=== PATIENT | female | born 1980 | race Caucasian/White ===

== ENCOUNTER 2017-05-07 19:58 | Emergency (ER) | payer OTHER ==
[~2017-05-07] VITALS: Ht 170.2 cm; Wt 69.5 kg
[~2017-05-07 19:58] MED LIST: ALBUAER2 INH; AMT24 PO; CETI10TA10 PO; ERGO500037 PO; IBUP-103 PO; MAGN250T9 PO; MTR600X PO; POLY335040 PO
[2017-05-07 20:18] VITALS: TEMP 36.8; Ht 170.2 cm; Wt 69.5 kg
[2017-05-07] MEDS ORDERED: OMEP40CA41 PO (20:34)
[2017-05-07] MEDS ORDERED: RANI150T2 PO (20:34)
[2017-05-07] MEDS ORDERED: CHOL1000 PO (20:35)
[2017-05-07] MEDS ORDERED: CYAN100T6 PO (20:35)
[2017-05-07] MEDS ORDERED: SODIUM CHLORIDE 0.9% 1000ML 1,000 ML IV STA (20:43)
[2017-05-07] MEDS ORDERED: ONDANSETRON 8 MG/54 ML D5W IV STA (20:53)
[2017-05-07] MEDS ORDERED: OPTIRAY 320 IV PRN (21:00)
[2017-05-07 21:13] LABS: URINE APPEARANCE TURBID (CLEAR); URINE BILIRUBIN NEG (NEG); URINE COLOR YELLOW; URINE EPITHELIAL CELL AUTO >30 /lpf (0-5); URINE NITRITE NEG (NEG); URINE SPECIFIC GRAVITY 1.015 (1.000-1.030); UROBILINOGEN NEG (NEG); ZZUR CULT IF INDIC CLEAN CATCH YES
[2017-05-07 21:29] LABS: MANUAL MICROSCOPIC REQUIRED? NO; REVIEW REQ? YES
[2017-05-07 21:31] LABS: BASO % 0.6 %; BASO ABS # 0.04 K/uL (0-0.2); COMPLETE YES; EOS % 1.5 %; HEMATOCRIT 37.1 % (37-47); IG% 0.1 %; LYMPH % 27.2 %; LYMPH ABS # 1.84 K/uL (1.2-3.4); MEAN CELL VOLUME 99.2 fL (80-100); MEAN CORPUSCULAR HEMOGLOBIN 34.2 pg (25-34); MEAN CORPUSCULAR HGB CONC 34.5 g/dl (32-36); MONO % 6.4 %; NEUT % 64.2 %; PLATELET COUNT 231 K/uL (130-400); RED BLOOD COUNT 3.74 M/uL (4.2-5.4); WHITE BLOOD COUNT 6.76 K/uL (4.8-10.8)
[2017-05-07 21:33] LABS: PREG INTERNAL NEGATIVE QC NEG CLEAR BACKGROUND; PREG INTERNAL POSITIVE QC POS CONTROL LINE
[2017-05-07 21:35] LABS: BLOOD UREA NITROGEN 13 mg/dl (7-18); BUN/CREATININE RATIO 18.9 (10-20); CALCIUM 8.9 mg/dl (8.5-10.1); CARBON DIOXIDE 27 mmol/L (21-32); CHLORIDE 106 mmol/L (98-107); CREATININE 0.66 mg/dl (0.60-1.20); GLUCOSE 76 mg/dl (70-99); POTASSIUM 3.8 mmol/L (3.5-5.1); SODIUM 140 mmol/L (136-145)
[2017-05-07 21:39] LABS: ALKALINE PHOSPHATASE 68 U/L (45-117); ALT/SGPT 35 U/L (12-78); AST/SGOT 29 U/L (15-37)
--- NOTE | 2017-05-07 21:44 | DIAGNOSTIC IMAGING REPORT ---
GALLBLADDER-ABD LIMITED CLINICAL HISTORY: upper abd pain, vomiting pain. Nausea. TECHNIQUE: Ultrasound COMPARISON STUDY: None FINDINGS: Contracted gallbladder. No shadowing gallstones. Common bile duct 5 mm. Liver is uniform. Pancreas and right kidney are unremarkable. IMPRESSION: Contracted gallbladder. Otherwise negative study. The above report was generated using voice recognition software. It may contain grammatical, syntax or spelling errors. Electronically signed by: Douglas Hernández M.D. 05/07/2017 9:43 PM Dictated Date/Time: 05/07/2017 9:42 PM
[2017-05-08] MEDS ORDERED: ONDA4TAB10 SL (00:35)
[2017-05-08] MEDS ORDERED: ONDANSETRON HOME PACK 4MG OD TAB PO ONE (00:45)
[2017-05-08 00:52] VITALS: BP 99/54; PULSE 70; O2SAT 99
--- NOTE | 2017-05-08 02:36 | EMERGENCY ROOM VISIT NOTE ---
History Report prepared by Everardo: Monique Alvarez Under the Supervision of: Dr. Andrew Cerda M.D. First contact with patient: 20:43 Chief Complaint: ABDOMINAL PAIN Stated Complaint: ABD PAIN,CHEST PAIN,NAUSEA Nursing Triage Summary: pt c/o abd pain/bloating x2 weeks. reports she saw GI and had hernia checked and was placed on antiacid medications. pt states she continues to have problems including bloating, pain in epigastric area, nausea, difficulty eating, and fatigue. reports hx of IBS and asthma. states "GI wanted to check my gall bladder and pancreas, but I called twice and no one returned my call." pt reports increased pain with eating. pt alert and oriented x4. breathing WNL. History of Present Illness The patient is a 36 year old female who presents to the Emergency Room with complaints of worsening abdominal pain starting two weeks ago. The patient states that she talked to her marine safety officer about the pain and he did and endo to determine it wasn't her hernia. She states that it isn't from her hernia. She reports that he put her on acid reflux medication that has provided no relief. She states that she has called them the past 3 days with no call back. She currently rates her pain as a 5/10 in severity, but notes when she tries to eat it is an 8/10 in severity. She describes the pain as a bloating feeling. The patient complains of loss of appetite, nausea, vomiting, fatigue, and chest pain that radiates to her back. Source of History: patient Onset: two weeks ago Position: abdomen Symptom Intensity: 5/10 Quality: other (bloating) Timing: worsening Associated Symptoms: + chest pain, + nausea, + vomiting, + back pain, + fatigue Note: The patient complains of loss of appetite. Review of Systems See HPI for pertinent positives and negatives. A total of ten systems were reviewed and were otherwise negative. Past Medical & Surgical Medical Problems: (1) Asthma (2) History of abdominal hernia (3) IBS (irritable bowel syndrome) (4) Pelvic pain Surgical Problems: (1) History of partial hysterectomy Family History Cancer Diabetes mellitus Heart disease Hypertension Lung disease Social History Smoking Status: Never Smoker Alcohol Use: none Marital Status: Housing Status: lives with significant other Occupation Status: unemployed Current/Historical Medications Scheduled Cetirizine Hcl (Zyrtec), 10 MG PO QAM Cholecalciferol (Vitamin D3), 5,000 INTER.UNIT PO DAILY Cyanocobalamin (Vitamin B12 100 Mcg), 200 MCG PO DAILY Lubiprostone (Amitiza), 24 MCG PO BID Magnesium (Magnesium), 750 MG PO QAM Omeprazole (Prilosec), 40 MG PO QAM Ondasetron Odt (Zofran Odt), 4 MG SL Q6H Polyethylene (Miralax Powder Packet), 2 SCOOPS PO DAILY Ranitidine HCl (Ranitidine HCl), 150 MG PO HS Scheduled PRN Albuterol (Ventolin), 2 PUFFS INH QID PRN for Shortness of Breath Ibuprofen (Ibuprofen), 600 MG PO Q6H PRN for Pain Ibuprofen Tab (Advil), 200-600 MG PO Q4H PRN for Pain Allergies Coded Allergies: Latex1 -Allergic Contact Dermititis (Verified Allergy, Severe, RASH, ) Moxifloxacin (Verified Allergy, Unknown, HIVES, 05/07/17) Physical Exam Vital Signs Date Time Temp Pulse Resp B/P (MAP) Pulse Ox O2 Delivery O2 Flow Rate FiO2 05/08/17 00:52 70 18 99/54 99 05/07/17 23:08 72 18 101/62 100 Room Air 05/07/17 22:29 73 05/07/17 21:10 73 18 111/67 100 Room Air 05/07/17 20:18 36.8 88 16 111/64 97 Room Air Physical Exam GENERAL: Awake, alert, uncomfortable-appearing, in no distress HENT: Normocephalic, atraumatic. Oropharynx unremarkable. EYES: Normal conjunctiva. Sclera non-icteric. NECK: Supple. No nuchal rigidity. FROM. No JVD. RESPIRATORY: Clear to auscultation. CARDIAC: Regular rate, normal rhythm. Extremities warm and well perfused. Pulses equal. ABDOMEN: Soft, non-distended. Mild epigastric tenderness to palpation. No rebound or guarding. No masses. RECTAL: Deferred. MUSCULOSKELETAL: Chest examination reveals no tenderness. The back is symmetrical on inspection without obvious abnormality. There is no CVA tenderness to palpation. No joint edema. LOWER EXTREMITIES: Calves are equal size bilaterally and non-tender. No edema. No discoloration. NEURO: Normal sensorium. No sensory or motor deficits noted. SKIN: No rash or jaundice noted. Medical Decision & Procedures ER Provider Diagnostic Interpretation: Radiology results as stated below per my review and radiologist interpretation: GALLBLADDER-ABD LIMITED CLINICAL HISTORY: upper abd pain, vomiting pain. Nausea. TECHNIQUE: Ultrasound COMPARISON STUDY: None FINDINGS: Contracted gallbladder. No shadowing gallstones. Common bile duct 5 mm. Liver is uniform. Pancreas and right kidney are unremarkable. IMPRESSION: Contracted gallbladder. Otherwise negative study. The above report was generated using voice recognition software. It may contain grammatical, syntax or spelling errors. Electronically signed by: Douglas Hernández M.D. 05/07/2017 9:43 PM Dictated Date/Time: 05/07/2017 9:[address] ABDOMEN & PELVIS: Contracted gallbladder. Tiny hypodensity in the lateral left hepatic lobe is too small to definitely characterize. Normal appendix. Oral contrast noted throughout the colon and small bowel loops and stomach. No bowel obstruction or inflammation. Prominent gas in the rectum. Radiologist: Mony Zhu M.D. Study ready at 23:44 and initial results transmitted at 00:02. Laboratory Results 05/07/17 20:55 Red Blood Count 3.74, Mean Corpuscular Volume 99.2, Mean Corpuscular Hemoglobin 34.2, Mean Corpuscular Hemoglobin Concent 34.5, Mean Platelet Volume 10.0, Neutrophils (%) (Auto) 64.2, Lymphocytes (%) (Auto) 27.2, Monocytes (%) (Auto) 6.4, Eosinophils (%) (Auto) 1.5, Basophils (%) (Auto) 0.6, Neutrophils # (Auto) 4.34, Lymphocytes # (Auto) 1.84, Monocytes # (Auto) 0.43, Eosinophils # (Auto) 0.10, Basophils # (Auto) 0.04 05/07/17 20:55 Test 05/07/17 20:55 White Blood Count 6.76 K/uL (4.8-10.8) Red Blood Count 3.74 M/uL (4.2-5.4) Hemoglobin 12.8 g/dL (12.0-16.0) Hematocrit 37.1 % (37-47) Mean Corpuscular Volume 99.2 fL (80-100) Mean Corpuscular Hemoglobin 34.2 pg (25-34) Mean Corpuscular Hemoglobin Concent 34.5 g/dl (32-36) Platelet Count 231 K/uL (130-400) Mean Platelet Volume 10.0 fL (7.4-10.4) Neutrophils (%) (Auto) 64.2 % Lymphocytes (%) (Auto) 27.2 % Monocytes (%) (Auto) 6.4 % Eosinophils (%) (Auto) 1.5 % Basophils (%) (Auto) 0.6 % Neutrophils # (Auto) 4.34 K/uL (1.4-6.5) Lymphocytes # (Auto) 1.84 K/uL (1.2-3.4) Monocytes # (Auto) 0.43 K/uL (0.11-0.59) Eosinophils # (Auto) 0.10 K/uL (0-0.5) Basophils # (Auto) 0.04 K/uL (0-0.2) RDW Standard Deviation 47.0 fL (36.4-46.3) RDW Coefficient of Variation 13.0 % (11.5-14.5) Immature Granulocyte % (Auto) 0.1 % Immature Granulocyte # (Auto) 0.01 K/uL (0.00-0.02) Urine Color YELLOW Urine Appearance TURBID (CLEAR) Urine pH 6.0 (4.5-7.5) Urine Specific [place] 1.015 (1.000-1.030) Urine Protein NEG (NEG) Urine Glucose (UA) NEG (NEG) Urine Ketones NEG (NEG) Urine Occult Blood NEG (NEG) Urine Nitrite NEG (NEG) Urine Bilirubin NEG (NEG) Urine Urobilinogen NEG (NEG) Urine Leukocyte Esterase NEG (NEG) Urine WBC (Auto) 10-30 /hpf (0-5) Urine RBC (Auto) 0-4 /hpf (0-4) Urine Hyaline Casts (Auto) 1-5 /lpf (0-5) Urine Epithelial Cells (Auto) >30 /lpf (0-5) Urine Bacteria (Auto) NEG (NEG) Urine Renal Epithelial Cells 0-5 /lpf (0-5) Urine Crystals (NONE PRSENT) Anion Gap 7.0 mmol/L (3-11) Est Creatinine Clear Calc Drug Dose 116.8 ml/min Estimated GFR () 133.6 Estimated GFR (Non- 115.3 BUN/Creatinine Ratio 18.9 (10-20) Calcium Level 8.9 mg/dl (8.5-10.1) Total Bilirubin 0.4 mg/dl (0.2-1) Direct Bilirubin < 0.1 mg/dl (0-0.2) Aspartate Amino Transf (AST/SGOT) 29 U/L (15-37) Alanine Aminotransferase (ALT/SGPT) 35 U/L (12-78) Alkaline Phosphatase 68 U/L (45-117) Total Protein 6.7 gm/dl (6.4-8.2) Albumin 3.8 gm/dl (3.4-5.0) Lipase 143 U/L (73-393) Human Chorionic Gonadotropin, Qual NEG (NEG) Laboratory results reviewed by me Medications Administered Medications (Trade) Dose Ordered Sig/Dale Route Start Time Stop Time Status Last Admin Dose Admin Sodium Chloride 1,000 ml @ 999 mls/hr Q1H1M STAT IV 05/07/17 20:43 05/07/17 21:43 DC 05/07/17 21:10 999 MLS/HR Ondansetron HCl (Zofran 8mg Iv) 8 mg NOW STAT IV 05/07/17 20:53 05/07/17 20:54 DC 05/07/17 21:10 8 MG Ondansetron HCl (ZOFRAN ODT 4MG Home Pack) 1 homepack UD ONCE PO 05/08/17 00:45 05/08/17 00:46 DC 05/08/17 00:46 1 HOMEPACK ED Course 2042: Ordered NSS 1000 ml @ 999 mls/hr IV. 2050: The patient was evaluated in room C2B. A complete history and physical exam was performed. 2052: Ordered Zofran 8mg Iv 8 mg IV. 0039: I reevaluated the patient. Discussed results and discharge instructions: She verbalized understanding and agreement. The patient is ready for discharge. 0045: Ordered Ondansetron HCl 1 homepack PO. Medical Decision Triage Nursing notes reviewed. The patient's presentation and history were concerning for abdominal pain. Etiologies such as appendicitis, diverticulitis, obstruction, inflammatory bowel disease, renal colic, PUD, biliary pathology, pancreatitis, mesenteric ischemia, aortic pathology, infections, genitourinary, UTI, perforated viscus, as well as others were entertained. The patient was evaluated. She has upper abdominal pain. The patient underwent a workup that included blood work, CT scan, and ultrasonography. The patient had an unremarkable CBC, chemistry panel, LFTs, lipase, and urinalysis. The patient is not . She had an unremarkable ultrasound and CT scan. Gallbladder is contracted. She does no postprandial discomfort. There may be a component with her gallbladder but there is no evidence of cholecystitis or cholangitis at this time. I discussed continued outpatient follow-up with gastroenterology and her primary physician. She did ask for some Zofran in case she gets nauseated again. A prescription was written. Patient is doing well at this time. She does not have a surgical abdomen. She has no fever or leukocytosis. If she worsens in any way she will be back. Otherwise the patient will follow-up in the office. I gave my usual and customary discussion regarding this issue. By the evaluation outlined above other emergent etiologies such as those listed in the differential, as well as others, were deemed relatively unlikely. The patient was educated about the findings as listed above. All questions were answered and the patient was pleased with the treatment. Return instructions were outlined and the patient was discharged in stable condition. The patient was referred to her GI and PCP for follow-up for a recheck of the current condition. Impression Primary Impression: Epigastric abdominal pain Additional Impression: Nausea Scribe Attestation The scribe's documentation has been prepared under my direction and personally reviewed by me in its entirety. I confirm that the note above accurately reflects all work, treatment, procedures, and medical decision making performed by me. Departure Information Dispostion Home / Self-Care Prescriptions Ondasetron Odt (ZOFRAN ODT) 4 Mg Tab 4 MG SL Q6H for Nausea, #8 TAB 1 Refill Prov: Andrew Cerda MD 05/08/17 Referrals No Doctor, Assigned (PCP) Forms Call Back Authorization, HOME CARE DOCUMENTATION FORM, IMPORTANT VISIT INFORMATION Patient Instructions My [facility] Additional Instructions ABDOMINAL PAIN INSTRUCTIONS: Continue current medications. Acetaminophen(Tylenol) may be used for fever or pain. Use 1000mg every six hours as needed. Avoid using more than 4000mg in a 24 hour period. Zofran 4 mg oral dissolving tablets: take one tablet and allow it to melt in your mouth every 4 hours as needed for nausea. Rest and drink plenty of fluids as tolerated. Slow sips of water or sports drinks are recommended instead of large amounts all at once. Once your stomach is settled start with a clear liquid diet (jello, soup broth, etc.) and then advance as tolerated. You should avoid full, heavy meals for about 24 hrs from the time your symptoms resolved. Return to the ER immediately for worsening or persistent abdominal pain, vomiting, fevers, chest pains, difficulty breathing, black or bloody stools, worsening of your condition, or as needed. Follow up with your primary physician in 2-3 days for a recheck of your current condition. Problem Qualifiers
--- NOTE | 2017-05-08 06:57 | DIAGNOSTIC IMAGING REPORT ---
ABD/PELVIS IV AND ORAL CONT HISTORY: 36 years-old Female acute upper abdominal pain COMPARISON: Ultrasound of the gallbladder of same day TECHNIQUE: Multiple axial CT images of the abdomen and pelvis were obtained following the intravenous administration of 93 mL Optiray 320. Oral contrast was also used. A dose lowering technique was used consistent with the principals of GISELE. FINDINGS: The imaged lung bases are generally clear with the exception of a 4 mm noncalcified pulmonary nodule the lateral basal segment right lower lobe, nonspecific but statistically benign in a patient of this age group. Imaged inferior cardiac chambers are unremarkable. 4 mm circumscribed low attenuating lesion of the lateral left hepatic lobe too small to characterize, however statistically favors a cyst or hemangioma. There is mild amount of periportal edema which is nonspecific and likely related to hydration status. Gallbladder is contracted. The spleen, pancreas and adrenal glands appear normal. There is a low attenuating 2.0 x 1.6 cm exophytic lesion involving the superior pole left kidney, likely a cyst. No renal calculi or hydronephrosis identified. Ureters, urinary bladder and uterus are unremarkable. The abdominal aorta is normal in both course and caliber. No bulky adenopathy identified. There is no bowel obstruction. The appendix is contrast opacified and appears normal. Soft tissues are within normal limits. Bones appear intact. 7 mm bone island involves the posterior left ilium. There is a synovial herniation pit of the left femoral neck, 8 mm. IMPRESSION: 1. No acute intra-abdominal or intrapelvic abnormality identified. 2. Normal appendix. The above report was generated using voice recognition software. It may contain grammatical, syntax or spelling errors. Electronically signed by: David Fitzpatrick M.D. 05/08/2017 6:56 AM Dictated Date/Time: 05/08/2017 6:50 AM
[2017-07-09] MEDS ORDERED: HYDR-5688 PO (15:08)
== END 2017-05-08 00:52 | disposition home or self-care (01) ==
LOC: C.EDB 20:00 → C.EDC 05-08 00:52
DX: R10.13 Epigastric pain (principal); R11.0 Nausea; K58.9 Irritable bowel syndrome, unspecified; J45.909 Unspecified asthma, uncomplicated; Z90.710 Acquired absence of both cervix and uterus; Z79.899 Other long term (current) drug therapy; Z80.9 Family history of malignant neoplasm, unspecified; Z83.3 Family history of diabetes mellitus; Z82.49 Family history of ischemic heart disease and other diseases of the circulatory system

== ENCOUNTER 2017-06-21 10:28 | Emergency (ER) | payer OTHER ==
[~2017-06-21] VITALS: Ht 170.2 cm; Wt 69.6 kg
[~2017-06-21 10:28] MED LIST changes: +CHOL1000 PO; +CYAN100T6 PO; -ERGO500037 PO; +OMEP40CA41 PO; +ONDA4TAB10 SL; +RANI150T2 PO
[2017-06-21 10:38] VITALS: Ht 170.2 cm; Wt 69.6 kg
[2017-06-21] MEDS ORDERED: VNTHFA/IN INH (10:58)
[2017-06-21] MEDS ORDERED: POLY335019 PO ×2 (10:58)
[2017-06-21] MEDS ORDERED: ONDANSETRON INJ 2 MG/ML 2 ML VIAL IV STA (11:03)
[2017-06-21] MEDS ORDERED: SODIUM CHLORIDE 0.9% 1000ML 1,000 ML IV STA (11:03)
[2017-06-21] MEDS ORDERED: KETOROLAC TROMETHAMINE 30 MG/ML VIAL IV STA (11:03)
[2017-06-21 11:24] LABS: BASO % 0.7 %; BASO ABS # 0.02 K/uL (0-0.2); COMPLETE YES; EOS % 1.7 %; HEMATOCRIT 37.4 % (37-47); LYMPH % 31.9 %; LYMPH ABS # 0.96 K/uL (1.2-3.4); MEAN CELL VOLUME 98.2 fL (80-100); MEAN CORPUSCULAR HEMOGLOBIN 33.9 pg (25-34); MEAN CORPUSCULAR HGB CONC 34.5 g/dl (32-36); MEAN PLATELET VOLUME 10.5 fL (7.4-10.4); NEUT % 58.7 %; PLATELET COUNT 174 K/uL (130-400); RED BLOOD COUNT 3.81 M/uL (4.2-5.4); WHITE BLOOD COUNT 3.01 K/uL (4.8-10.8)
[2017-06-21 11:34] LABS: URINE APPEARANCE CLEAR (CLEAR); URINE BILIRUBIN NEG (NEG); URINE COLOR YELLOW; URINE NITRITE NEG (NEG); URINE SPECIFIC GRAVITY 1.011 (1.000-1.030); UROBILINOGEN NEG (NEG); ZZUR CULT IF INDIC CLEAN CATCH NO
[2017-06-21 11:36] LABS: MANUAL MICROSCOPIC REQUIRED? NO; REVIEW REQ? NO
[2017-06-21 11:47] LABS: BUN/CREATININE RATIO 9.7 (10-20); CALCIUM 8.6 mg/dl (8.5-10.1); CREATININE 0.65 mg/dl (0.60-1.20); POTASSIUM 3.7 mmol/L (3.5-5.1)
--- NOTE | 2017-06-21 12:08 | DIAGNOSTIC IMAGING REPORT ---
GALLBLADDER-ABD LIMITED CLINICAL HISTORY: epigastric Abdur pain TECHNIQUE: Ultrasound COMPARISON STUDY: 05/07/2017 FINDINGS: Normal gallbladder. Common bile duct 5 mm. Liver is uniform. Pancreas is unremarkable. Right kidney is negative for hydronephrosis. IMPRESSION: Negative study. The above report was generated using voice recognition software. It may contain grammatical, syntax or spelling errors. Electronically signed by: Douglas Hernández M.D. 06/21/2017 12:07 PM Dictated Date/Time: 06/21/2017 12:06 PM
[2017-06-21 13:54] VITALS: BP 108/68; PULSE 71; TEMP 37.1; O2SAT 99
--- NOTE | 2017-06-21 15:09 | EMERGENCY ROOM VISIT NOTE ---
History Report prepared by Surinderibchirag: Janeth Bazzi Under the Supervision of: Dr. Pancho Maldonado D.O. First contact with patient: 10:40 Chief Complaint: ABDOMINAL PAIN Stated Complaint: STOMACH PAIN, NAUSEA Nursing Triage Summary: triage note: pt reports right upper abd pain, abd bloating and nausea. pt reports chills since yesterday. History of Present Illness The patient is a 36 year old female who presents to the Emergency Room with complaints of persistent right sided abdominal pain since yesterday. She rates her pain as a 5/10 in severity. She states her abdomen feels increasingly bloated, even though she has not eaten yet today. She has also experienced nausea and the chills. She states she is so nauseated she cannot eat. Fatty foods worsen her pain. The patient admits to a history of IBS and states she has experienced worsening abdominal issues for the past 2 months. She follows with Dr. Lisa of [facility]. She had to miss her most recent appointment because of her work schedule. She still has her appendix and gallbladder. She has undergone a partial hysterectomy. She denies any fevers above 100.4 degrees. Her last BM was yesterday and normal. The patient denies any history of diabetes, hypertension or hyperlipidemia. Pt denies headache, change in vision, fevers, chest pain, shortness of breath, diarrhea, pain with urination, and melena. Source of History: patient Onset: yesterday Position: abdomen Symptom Intensity: 5/10 Timing: other (persistent) Modifying Factors (Worsening): eating (fatty foods) Associated Symptoms: + nausea, No fevers, No headache, No chest pain, No SOB , No vomiting, No melena, No diarrhea, No urinary symptoms Review of Systems See HPI for pertinent positives & negatives. A total of 10 systems reviewed and were otherwise negative. Past Medical & Surgical Medical Problems: (1) Asthma (2) History of abdominal hernia (3) IBS (irritable bowel syndrome) (4) Pelvic pain Surgical Problems: (1) History of partial hysterectomy Family History Cancer Diabetes mellitus Heart disease Hypertension Lung disease Social History Smoking Status: Never Smoker Alcohol Use: none Drug Use: none Marital Status: Housing Status: lives with significant other Occupation Status: employed Current/Historical Medications Scheduled Cetirizine Hcl (Zyrtec), 10 MG PO QAM Cholecalciferol (Vitamin D3), 5,000 INTER.UNIT PO DAILY Cyanocobalamin (Vitamin B12 100 Mcg), 200 MCG PO DAILY Lubiprostone (Amitiza), 24 MCG PO BID Magnesium (Magnesium), 750 MG PO QAM Omeprazole (Prilosec), 40 MG PO QAM Polyethylene Glycol 3350 (Miralax), 68 GM PO QAM Polyethylene Glycol 3350 (Miralax), 34 GM PO HS Ranitidine HCl (Ranitidine HCl), 150 MG PO HS Scheduled PRN Albuterol Hfa (Ventolin Hfa), 2 PUFFS INH Q6H PRN for Shortness of Breath Allergies Coded Allergies: Latex1 -Allergic Contact Dermititis (Verified Allergy, Severe, RASH, ) Moxifloxacin (Verified Allergy, Unknown, HIVES, 06/21/17) Physical Exam Vital Signs Date Time Temp Pulse Resp B/P (MAP) Pulse Ox O2 Delivery O2 Flow Rate FiO2 06/21/17 13:54 37.1 71 18 108/68 99 06/21/17 13:00 71 18 108/68 99 Room Air 06/21/17 10:38 37.1 74 18 105/63 99 Room Air Physical Exam GENERAL: Patient is alert, sitting up in bed, well appearing, well nourished, no distress, non-toxic EYE EXAM: normal conjunctiva OROPHARYNX: no exudate, no erythema, lips, buccal mucosa, and tongue normal and mucous membranes are moist NECK: supple, no nuchal rigidity, no adenopathy, non-tender LUNGS: Clear to auscultation. Normal chest wall mechanics HEART: no murmurs, S1 normal and S2 normal ABDOMEN: abdomen soft, minimal tenderness in RUQ, normo-active bowel sounds, no masses, no rebound or guarding. BACK: Back is symmetrical on inspection and there is no deformity, no midline tenderness, no CVA tenderness. SKIN: no rashes and no bruising UPPER EXTREMITIES: upper extremities are grossly normal. LOWER EXTREMITIES: No pitting edema. NEURO EXAM: Normal sensorium, cranial nerves II-XII intact, normal speech, no weakness of arms, no weakness of legs. Gross sensation intact. Medical Decision & Procedures ER Provider Diagnostic Interpretation: Radiology results as stated below per my review and the radiologist's interpretation: GALLBLADDER-ABD LIMITED CLINICAL HISTORY: epigastric Abdur pain TECHNIQUE: Ultrasound COMPARISON STUDY: 05/07/2017 FINDINGS: Normal gallbladder. Common bile duct 5 mm. Liver is uniform. Pancreas is unremarkable. Right kidney is negative for hydronephrosis. IMPRESSION: Negative study. The above report was generated using voice recognition software. It may contain grammatical, syntax or spelling errors. Electronically signed by: Douglas Hernández M.D. 06/21/2017 12:07 PM Laboratory Results 06/21/17 11:00 Red Blood Count 3.81, Mean Corpuscular Volume 98.2, Mean Corpuscular Hemoglobin 33.9, Mean Corpuscular Hemoglobin Concent 34.5, Mean Platelet Volume 10.5, Neutrophils (%) (Auto) 58.7, Lymphocytes (%) (Auto) 31.9, Monocytes (%) (Auto) 7.0, Eosinophils (%) (Auto) 1.7, Basophils (%) (Auto) 0.7, Neutrophils # (Auto) 1.77, Lymphocytes # (Auto) 0.96, Monocytes # (Auto) 0.21, Eosinophils # (Auto) 0.05, Basophils # (Auto) 0.02 06/21/17 11:00 Test 06/21/17 11:00 White Blood Count 3.01 K/uL (4.8-10.8) Red Blood Count 3.81 M/uL (4.2-5.4) Hemoglobin 12.9 g/dL (12.0-16.0) Hematocrit 37.4 % (37-47) Mean Corpuscular Volume 98.2 fL (80-100) Mean Corpuscular Hemoglobin 33.9 pg (25-34) Mean Corpuscular Hemoglobin Concent 34.5 g/dl (32-36) Platelet Count 174 K/uL (130-400) Mean Platelet Volume 10.5 fL (7.4-10.4) Neutrophils (%) (Auto) 58.7 % Lymphocytes (%) (Auto) 31.9 % Monocytes (%) (Auto) 7.0 % Eosinophils (%) (Auto) 1.7 % Basophils (%) (Auto) 0.7 % Neutrophils # (Auto) 1.77 K/uL (1.4-6.5) Lymphocytes # (Auto) 0.96 K/uL (1.2-3.4) Monocytes # (Auto) 0.21 K/uL (0.11-0.59) Eosinophils # (Auto) 0.05 K/uL (0-0.5) Basophils # (Auto) 0.02 K/uL (0-0.2) RDW Standard Deviation 46.4 fL (36.4-46.3) RDW Coefficient of Variation 12.9 % (11.5-14.5) Immature Granulocyte % (Auto) 0.0 % Immature Granulocyte # (Auto) 0.00 K/uL (0.00-0.02) Urine Color YELLOW Urine Appearance CLEAR (CLEAR) Urine pH 8.0 (4.5-7.5) Urine Specific [place]tt 1.011 (1.000-1.030) Urine Protein NEG (NEG) Urine Glucose (UA) NEG (NEG) Urine Ketones NEG (NEG) Urine Occult Blood NEG (NEG) Urine Nitrite NEG (NEG) Urine Bilirubin NEG (NEG) Urine Urobilinogen NEG (NEG) Urine Leukocyte Esterase NEG (NEG) Urine WBC (Auto) 0 /hpf (0-5) Urine RBC (Auto) 0-4 /hpf (0-4) Urine Hyaline Casts (Auto) 0 /lpf (0-5) Urine Epithelial Cells (Auto) 5-10 /lpf (0-5) Urine Bacteria (Auto) NEG (NEG) Urine Test NEG (NEG) Anion Gap 6.0 mmol/L (3-11) Est Creatinine Clear Calc Drug Dose 118.6 ml/min Estimated GFR () 134.3 Estimated GFR (Non- 115.8 BUN/Creatinine Ratio 9.7 (10-20) Calcium Level 8.6 mg/dl (8.5-10.1) Total Bilirubin 0.9 mg/dl (0.2-1) Direct Bilirubin 0.2 mg/dl (0-0.2) Aspartate Amino Transf (AST/SGOT) 16 U/L (15-37) Alanine Aminotransferase (ALT/SGPT) 20 U/L (12-78) Alkaline Phosphatase 52 U/L (45-117) Total Protein 6.8 gm/dl (6.4-8.2) Albumin 3.8 gm/dl (3.4-5.0) Lipase 98 U/L (73-393) Laboratory results per my review. Medications Administered Medications (Trade) Dose Ordered Sig/Dale Route Start Time Stop Time Status Last Admin Dose Admin Ketorolac Tromethamine (Toradol Inj) 30 mg NOW STAT IV 06/21/17 11:03 06/21/17 11:04 DC 06/21/17 11:00 30 MG Sodium Chloride 1,000 ml @ 999 mls/hr Q1H1M STAT IV 06/21/17 11:03 06/21/17 12:03 DC 06/21/17 11:00 999 MLS/HR Ondansetron HCl (Zofran Inj) 4 mg NOW STAT IV 06/21/17 11:03 06/21/17 11:04 DC 06/21/17 11:00 4 MG ED Course ED COURSE: Vital signs were reviewed and showed normal vital signs The patients medical record was reviewed The above diagnostic studies were performed and reviewed. ED treatments and interventions as stated above. 1057: The patient was evaluated in room C5. A complete history and physical examination was performed. 1103: Zofran 4 mg IV, NSS 1000 ml @ 999 mls/hr IV, Toradol 30 mg IV. 1335: Upon reevaluation, the patient is feeling well and resting comfortably. I discussed my findings with the patient and she understands and agrees with the treatment plan. She is scheduled for a HIDA scan this coming . Based on the patients age, coexisting illnesses, exam and lab findings the decision to treat as an outpatient was made. The patient remained stable while under my care. The patient appeared well at the time of discharge. Medical Decision Differential diagnoses includes but is not limited to gastritis, peptic ulcer disease, GERD, gallbladder disease, pancreatitis, small bowel obstruction, acute coronary syndrome, pericarditis, ischemic bowel, irritable bowel disease, irritable bowel syndrome, appendicitis, diverticulitis, malignancy, hernia, urinary tract infection, torsion, /ectopic , perforation, trauma, infectious. Patient is a 36-year-old female who presents to ER for right upper quadrant abdominal pain which is present for the past 2 months which is worse after eating fatty foods. She follows with Dr. Lisa from GI. Scheduled for HIDA scan on . Abdominal exam is fairly benign. No significant leukocytosis. BMP all LFTs, bilirubin and lipase is unremarkable. UA was negative. Patient is driving and consequently was given IV Toradol. She did feel slightly better. She is moving her bowels. Nothing to suggest an obstruction. Ultrasound shows no signs of cholecystitis. Patient was updated at bedside and discharged follow-up with GI. Discussed with Pt concerning signs and symptoms to watch out for. Pt was instructed to follow up with their PCP and discussed with the patient their option to return to the ED at anytime for persistent or worsening symptoms. The appropriate anticipatory guidance and out- patient management, including indications for return to the emergency department , were explained at length to the patient and understood. Medication Reconcilliation Current Medication List: was personally reviewed by me Blood Pressure Screening Patient's blood pressure: Normal blood pressure Blood pressure disposition: Did not require urgent referral Impression Primary Impression: Abdominal pain Scribe Attestation The scribe's documentation has been prepared under my direction and personally reviewed by me in its entirety. I confirm that the note above accurately reflects all work, treatment, procedures, and medical decision making performed by me. Departure Information Dispostion Home / Self-Care Referrals Bisi Turner M.D. (PCP) Patient Instructions Abdominal Pain - [facility], My [facility] Additional Instructions Please follow up with your primary care doctor or if you are a student, [facility] with in the next 24 hours. Any worsening of your symptoms, please return to the ED immediately. This includes any fevers greater than 100.4, worsening pain, chest pain, shortness breath, persistent nausea, vomiting, unable to eat or drink, or any other concerning signs or symptoms from your standpoint. Problem Qualifiers Primary Impression: Abdominal pain Abdominal location: right upper quadrant Qualified Codes: R10.11 - Right upper quadrant pain
[2017-07-09] MEDS ORDERED: HYDR-5688 PO (15:08)
== END 2017-06-21 13:57 | disposition home or self-care (01) ==
LOC: C.EDB 10:30 → C.EDC 13:57
DX: R10.11 Right upper quadrant pain (principal); J45.909 Unspecified asthma, uncomplicated; Z90.711 Acquired absence of uterus with remaining cervical stump; K58.9 Irritable bowel syndrome, unspecified; Z79.899 Other long term (current) drug therapy; Z80.9 Family history of malignant neoplasm, unspecified; Z83.3 Family history of diabetes mellitus; Z82.49 Family history of ischemic heart disease and other diseases of the circulatory system

== ENCOUNTER 2017-07-11 12:49 | Emergency (ER) | payer OTHER ==
[~2017-07-11] VITALS: Ht 170.2 cm; Wt 55.1 kg
[~2017-07-11 12:49] MED LIST changes: -ALBUAER2 INH; +HYDR-5688 PO; -IBUP-103 PO; -MTR600X PO; -ONDA4TAB10 SL; +POLY335019 PO; -POLY335040 PO; +VNTHFA/IN INH
[2017-07-11 12:58] VITALS: TEMP 37.2; Ht 170.2 cm; Wt 55.1 kg
[2017-07-11] MEDS ORDERED: ONDANSETRON INJ 2 MG/ML 2 ML VIAL IV STA (13:12)
[2017-07-11] MEDS ORDERED: SODIUM CHLORIDE 0.9% 1000ML 1,000 ML IV STA (13:12)
--- NOTE | 2017-07-11 13:24 | EMERGENCY ROOM VISIT NOTE ---
History First contact with patient: 13:02 Chief Complaint: ABDOMINAL PAIN Stated Complaint: SEVERE PAIN, D,N, GALLBLADDER SURG. 07/09 History of Present Illness The patient is a 36 year old female who presents to the Emergency Room with complaints of severe abdominal pain that woke her up from sleep in the middle the night. She states the pain is in her upper abdomen, constant, worse with movement, somewhat improved with pain medication, 07/07. She has associated nausea and feels like her abdomen is bloated. She had laparoscopic gallbladder surgery 2 days ago, states that she has been doing well since the surgery and having a reasonable amount of postoperative pain that has been well managed with her prescribed Douglas. However, she states this pain is nearly unbearable and much worse. She has been only taking the Douglas when she feels her pain is severe. She denies any fevers/chills, chest pain, shortness of breath, back pain , vomiting, diarrhea or constipation, blood in her stool, urinary symptoms. Review of Systems A complete 10 point review of systems was reviewed with the patient with pertinent positives and negatives as per history of present illness. All else were negative. Past Medical/Surgical History Medical Problems: (1) Asthma (2) History of abdominal hernia (3) IBS (irritable bowel syndrome) (4) Pelvic pain Surgical Problems: (1) History of partial hysterectomy Family History Cancer Diabetes mellitus Heart disease Hypertension Lung disease Social History Smoking Status: Never Smoker Alcohol Use: none Drug Use: none Marital Status: Housing Status: lives with significant other Occupation Status: employed Current/Historical Medications Scheduled Cetirizine Hcl (Zyrtec), 10 MG PO QAM Cholecalciferol (Vitamin D3), 5,000 INTER.UNIT PO DAILY Cyanocobalamin (Vitamin B12 100 Mcg), 200 MCG PO DAILY Lubiprostone (Amitiza), 24 MCG PO BID Magnesium (Magnesium), 750 MG PO QAM Omeprazole (Prilosec), 40 MG PO QAM Ondasetron Odt (Zofran Odt), 4 MG SL Q6H Polyethylene Glycol 3350 (Miralax), 68 GM PO QAM Polyethylene Glycol 3350 (Miralax), 34 GM PO HS Ranitidine HCl (Ranitidine HCl), 150 MG PO HS Scheduled PRN Albuterol Hfa (Ventolin Hfa), 2 PUFFS INH Q6H PRN for Shortness of Breath Hydrocodone/Acetaminophen 5MG/325MG (Douglas 5MG/325MG), 1-2 TABLETS PO Q4H PRN for Pain Oxycodone Ir (Roxicodone Ir), 1-2 TAB PO Q6 PRN for Severe Pain Allergies Coded Allergies: Latex1 -Allergic Contact Dermititis (Verified Allergy, Severe, RASH, 07/11) Moxifloxacin (Verified Allergy, Unknown, HIVES, 07/11/17) Physical Exam Vital Signs Date Time Temp Pulse Resp B/P (MAP) Pulse Ox O2 Delivery O2 Flow Rate FiO2 07/11/17 18:22 58 16 115/72 98 Room Air 07/11/17 16:22 58 16 128/68 98 Room Air 07/11/17 14:50 62 16 132/76 98 Room Air 07/11/17 12:58 37.2 78 16 104/68 100 Room Air Physical Exam CONSTITUTIONAL: No acute distress, but appears to be in pain. Well appearing and well nourished. Alert and oriented X 4 with normal affect. HEENT: Normocephalic, atraumatic. Pupils equal, round and reactive to light, EOMI. TMs normal. Pharynx normal. NECK: Supple, full active range of motion without discomfort. RESPIRATORY: Clear to auscultation bilaterally with no wheezing, crackles, rhonchi or stridor. Equal expansion bilaterally. CARDIOVASCULAR: Regular rate and rhythm with no murmurs, rubs or gallops. Normal peripheral perfusion. No edema. GASTROINTESTINAL: Moderately tender across the diffuse upper abdomen, especially in the right upper quadrant. Slight guarding, no rebound. Soft and nondistended. Hypoactive bowel sounds present in all quadrants. Laparoscopic surgical incisions intact, no drainage, mild swelling and ecchymosis at incision sites. MUSCULOSKELETAL: Full range of motion of all joints without discomfort. INTEGUMENTARY: No rash or other significant dermatologic conditions noted. NEUROLOGIC: Cranial nerves II-XII grossly intact. No focal neurologic deficits noted. Medical Decision & Procedures ER Provider Diagnostic Interpretation: PA CHEST WITH ABDOMINAL SERIES CLINICAL HISTORY: Generalized abdominal pain. Recent surgery. FINDINGS: A PA chest radiograph is compared to study dated 11/22/2013. The cardiomediastinal silhouette is unremarkable. There is bibasilar atelectasis. The lungs and pleural spaces are otherwise clear. No pneumothorax is seen. The bony thorax is grossly intact. Supine and erect abdominal radiographs are correlated with abdominal CT dated 05/07/2017. Cholecystectomy clips are noted. There are scattered air-fluid levels seen throughout the bowel. There is no radiographic evidence of high-grade obstruction. Intraperitoneal free air is suggested below the diaphragm on the upright view. There are no abnormal abdominal calcifications. A phlebolith is seen in the right hemipelvis. The lumbosacral spine and bony pelvis appear intact. IMPRESSION: 1. No active disease in the chest. 2. Intraperitoneal free air is suspected below the diaphragm. This may be related to the reported history of recent surgery. Clinical correlation will be essential. 3. There is no radiographic evidence of bowel obstruction. Numerous air-fluid levels are noted and this may represent an enteritis or possibly a postoperative ileus. Again, clinical correlation will be required. ----- CT SCAN OF THE ABDOMEN AND PELVIS WITH IV CONTRAST CLINICAL HISTORY: Generalized abdominal pain. Recent cholecystectomy. Intraperitoneal free air is seen by x-ray. COMPARISON STUDY: Abdominal CT dated 05/07/2017. Abdominal radiographs dated 07/11/2017. TECHNIQUE: Following the IV administration of 117 cc of Optiray 320, CT scan of the abdomen and pelvis is performed from the lung bases to the proximal femora. Images are reviewed in the axial, sagittal, and coronal planes. IV contrast was administered without complication. A dose lowering technique was utilized adhering to the principles of ALARA. CT DOSE: 314.96 mGy.cm FINDINGS: Lung bases: The heart is normal in size and without pericardial effusion. There are trace pleural effusions and dependent atelectasis. Liver: The contrast-enhanced liver is normal in size, contour, and attenuation. There is mild intrahepatic biliary ductal dilatation. Minimal pneumobilia is also seen. The hepatic veins and portal veins are patent. Gallbladder: Surgically absent noting clips in the gallbladder fossa. There is fluid and gas identified within the gallbladder fossa. No organized collection is seen to suggest abscess. Spleen: Normal in size and attenuation. Pancreas: Unremarkable. Adrenal glands: Unremarkable. Kidneys: The contrast enhanced kidneys are normal in size and without hydronephrosis. The kidneys enhance symmetrically. A 2.1 cm exophytic cyst is again seen arising from the upper pole of left kidney. Abdominal vasculature: The abdominal aorta is normal in course and caliber. Bowel: There is significant mucosal thickening and edema identified in the right colon. Mild pericolonic infiltration is observed. There is fluid and stool seen throughout the remainder of the colon. Wall thickening and air-fluid levels are also suggested in the rectosigmoid region. The appearance suggests a nonspecific colitis. There is no bowel obstruction. The appendix is normal as visualized. Peritoneum: There is a moderate volume of intraperitoneal free air below the diaphragm. Additional foci of intraperitoneal free air scattered throughout the mid to upper abdomen. There is trace free fluid in the right upper quadrant and the right paracolic gutter. Lymphadenopathy: None. Pelvic viscera: The bladder is normal as visualized. The uterus is surgically absent. No adnexal lesion is seen. Skeletal structures: No lytic or blastic lesions are seen. IMPRESSION: 1. There is a moderate volume of intraperitoneal free air, greatest below the diaphragm. This is a nonspecific finding given the history of recent surgery and may represent an expected postoperative finding. Perforated viscus would be impossible to exclude. No obvious site of perforation is identified. 2. Findings suggest a nonspecific colitis, greatest involving the right colon. This is likely on an infectious or inflammatory basis. Clinical correlation will be required. 3. No bowel obstruction is seen. 4. The gallbladder is surgically absent. Fluid and gas are noted in the gallbladder fossa, with no organized fluid collection seen. This likely represents postoperative change. Clinical correlation will be required. Follow-up with the patient's surgeon is recommended. 5. There is mild intrahepatic biliary ductal dilatation as well as pneumobilia, likely related to recent surgery and possibly sphincterotomy. 6. Trace pleural effusions with bibasilar atelectasis. 7. Additional findings as above. Laboratory Results 07/11/17 13:30 Red Blood Count 4.00, Mean Corpuscular Volume 98.3, Mean Corpuscular Hemoglobin 33.5, Mean Corpuscular Hemoglobin Concent 34.1, Mean Platelet Volume 10.4, Neutrophils (%) (Auto) 75.1, Lymphocytes (%) (Auto) 14.3, Monocytes (%) (Auto) 7.5, Eosinophils (%) (Auto) 2.6, Basophils (%) (Auto) 0.3, Neutrophils # (Auto) 4.93, Lymphocytes # (Auto) 0.94, Monocytes # (Auto) 0.49, Eosinophils # (Auto) 0.17, Basophils # (Auto) 0.02 07/11/17 13:30 Test 07/11/17 13:30 07/11/17 13:38 07/11/17 15:02 White Blood Count 6.56 K/uL (4.8-10.8) Red Blood Count 4.00 M/uL (4.2-5.4) Hemoglobin 13.4 g/dL (12.0-16.0) Hematocrit 39.3 % (37-47) Mean Corpuscular Volume 98.3 fL (80-100) Mean Corpuscular Hemoglobin 33.5 pg (25-34) Mean Corpuscular Hemoglobin Concent 34.1 g/dl (32-36) Platelet Count 197 K/uL (130-400) Mean Platelet Volume 10.4 fL (7.4-10.4) Neutrophils (%) (Auto) 75.1 % Lymphocytes (%) (Auto) 14.3 % Monocytes (%) (Auto) 7.5 % Eosinophils (%) (Auto) 2.6 % Basophils (%) (Auto) 0.3 % Neutrophils # (Auto) 4.93 K/uL (1.4-6.5) Lymphocytes # (Auto) 0.94 K/uL (1.2-3.4) Monocytes # (Auto) 0.49 K/uL (0.11-0.59) Eosinophils # (Auto) 0.17 K/uL (0-0.5) Basophils # (Auto) 0.02 K/uL (0-0.2) RDW Standard Deviation 46.5 fL (36.4-46.3) RDW Coefficient of Variation 13.0 % (11.5-14.5) Immature Granulocyte % (Auto) 0.2 % Immature Granulocyte # (Auto) 0.01 K/uL (0.00-0.02) Anion Gap 6.0 mmol/L (3-11) Est Creatinine Clear Calc Drug Dose 102.9 ml/min Estimated GFR () 132.9 Estimated GFR (Non- 114.7 BUN/Creatinine Ratio 9.0 (10-20) Calcium Level 9.1 mg/dl (8.5-10.1) Total Bilirubin 0.7 mg/dl (0.2-1) Direct Bilirubin 0.1 mg/dl (0-0.2) Aspartate Amino Transf (AST/SGOT) 38 U/L (15-37) Alanine Aminotransferase (ALT/SGPT) 50 U/L (12-78) Alkaline Phosphatase 51 U/L (45-117) Total Protein 7.4 gm/dl (6.4-8.2) Albumin 4.0 gm/dl (3.4-5.0) Lipase 102 U/L (73-393) Bedside Lactic Acid Venous 0.66 mmol/L (0.90-1.70) Urine Color YELLOW Urine Appearance CLEAR (CLEAR) Urine pH 6.0 (4.5-7.5) Urine Specific [place] 1.011 (1.000-1.030) Urine Protein NEG (NEG) Urine Glucose (UA) NEG (NEG) Urine Ketones NEG (NEG) Urine Occult Blood NEG (NEG) Urine Nitrite NEG (NEG) Urine Bilirubin NEG (NEG) Urine Urobilinogen NEG (NEG) Urine Leukocyte Esterase NEG (NEG) Medications Administered Medications (Trade) Dose Ordered Sig/Dale Route Start Time Stop Time Status Last Admin Dose Admin Sodium Chloride 1,000 ml @ 999 mls/hr Q1H1M STAT IV 07/11/17 13:12 07/11/17 14:12 DC 07/11/17 13:12 999 MLS/HR Ondansetron HCl (Zofran Inj) 4 mg NOW STAT IV 07/11/17 13:12 07/11/17 13:16 DC 07/11/17 13:12 4 MG Morphine Sulfate (MoRPHine SULFATE INJ) 4 mg Q1H PRN IV 07/11/17 13:15 07/11/17 19:40 DC 07/11/17 17:47 4 MG Oxycodone/ Acetaminophen (Percocet 5-325mg Tab) 1 tab NOW ONCE PO 07/11/17 18:30 07/11/17 18:31 DC 07/11/17 18:30 1 TAB Oxycodone HCl (Roxicodone Immediate Rel 5MG Home Pack) 1 homepack UD ONCE PO 07/11/17 18:30 07/11/17 18:31 DC 07/11/17 18:30 1 HOMEPACK Medical Decision CC: Patient presenting with complaint of abdominal pain Interpretation of Labs: No leukocytosis, no anemia, no significant electrolyte abnormalities, normal renal function, normal liver enzymes and lipase, normal lactic acid. UA negative. Differential Diagnosis: Includes, but not limited to postoperative complication including bowel perforation, small bowel obstruction, infection, as well as gallstone, pancreatitis, gastritis, gastroenteritis, constipation, normal changes of postoperative pain, among others. Medication Reconciliation: I attest that I have personally reviewed the patient' s current medication list. Vital signs review: I reviewed the patient's vital signs and interpret them as follows: T: Afebrile; BP: Normotensive; HR: Within normal limits; RR: Within normal limits; Pulse Ox: Within normal limits on room air. Blood pressure screening: The patient was found to have normal blood pressure on screening and does not require follow-up for repeat blood pressure check. Summary: Patient was evaluated at bedside, history of physical exam performed. Patient is alert and in no acute distress, but does appear to be uncomfortable and in pain. Her abdominal incisions appear intact. She is tender in the upper abdomen, most tender in the right upper quadrant. The lower abdomen is nontender to palpation. The abdomen is soft and nondistended, no exam findings concerning for an acute abdomen. Orders were placed at bedside for labs, UA, IV fluids for hydration, IV morphine for pain, IV Zofran for nausea, acute abdominal series to rule out free air, and CT abdomen/pelvis to fully evaluate for postoperative complications. Patient discussed with Dr. Jacob, who agrees with my assessment and plan. Labs reviewed as above, no acute abnormalities. Imaging reveals pneumoperitoneum that is suspected given her recent laparoscopy , however no evidence of bowel perforation, bile leak, infection, or other intra -abdominal complication. I discussed with Dr. Mckoy, general surgery, and reviewed the patient's CT with him. He agrees that there is no acute surgical problem at this time, and patient is most likely having a normal postsurgical recovery. Patient reassessed multiple times throughout ED stay, she does feel much better after IV pain medication and IV fluids. I discussed all results with the patient and plan for discharge, with provision of Rx for oxycodone to better manage her postoperative pain. The patient verbalized understanding of all discharge instructions and is comfortable with plan for discharge. I discussed return precautions should the patient's symptoms worsen, she verbalized understanding. Patient was discharged home in stable condition and ambulatory. Impression Primary Impression: Abdominal pain Departure Information Dispostion Home / Self-Care Condition GOOD Prescriptions Ondasetron Odt (ZOFRAN ODT) 4 Mg Tab 4 MG SL Q6H for Nausea, #6 TAB Prov: Dominga Lopez CRNP 07/11/17 Oxycodone Ir (Roxicodone Ir) 5 Mg Tab 1-2 TAB PO Q6 Y for Severe Pain for 3 Days, #24 TAB Prov: JohnDominga CRNP 07/11/17 Referrals Bisi Turner M.D. (PCP) Patient Instructions Cholecystectomy, ED Diet Clear Liquid, [facility] Additional Instructions You have been treated in the Emergency Department your Abdominal Pain. Laboratory results and imaging studies have ruled out any emergent causes for your abdominal pain which would warrant admission or surgery. This is most likely a normal progression of your healing from surgery. You have been prescribed Oxycodone to be used for SEVERE pain. You may take 1- 2 tablets every 6 hours as needed for pain. This is a narcotic medication. You cannot drive or consume alcohol while on this medicine. This medicine should only be used for pain that cannot be controlled with [id number] pain medicines. You should not take this with the Douglas you already have, as this could cause you to become over-sedated. You have been prescribed Zofran to be used for any nausea or vomiting. Take as prescribed. For pain control, you can use the following [id number] medicines (if >12 yo): - Regular strength (325mg/tab) Tylenol (acetaminophen) 2 tabs every 4-6 hours as needed. Do not exceed 10 tablets in a 24 hour period. Avoid taking more than 3000 mg of Tylenol per day. This includes any other sources of acetaminophen you may take on a regular basis. - Regular strength (200 mg/tab) Advil (ibuprofen) 2-3 tabs every 6-8 hours as needed. Do not exceed a dose of 2400 mg per day. You should stick with a clear liquid diet for the next 2 days to help allow your bowels to rest. Drink plenty of fluids and stay well hydrated. As with any trip to the Emergency Department, you should follow-up with your Primary Care Provider from today's visit. You should also keep your scheduled follow-up with the surgeon. Return to the emergency department for severe worsening abdominal pain, fever/ chills, worsening nausea/vomiting, vomiting up blood, blood in your stool or urine. Work Instructions Return To Work: 2 days Problem Qualifiers Primary Impression: Abdominal pain Abdominal location: right upper quadrant Qualified Codes: R10.11 - Right upper quadrant pain
[2017-07-11] MEDS ORDERED: OPTIRAY 320 IV PRN (13:30)
[2017-07-11 13:48] LABS: BASO % 0.3 %; BASO ABS # 0.02 K/uL (0-0.2); COMPLETE YES; EOS % 2.6 %; HEMATOCRIT 39.3 % (37-47); IG% 0.2 %; LYMPH % 14.3 %; LYMPH ABS # 0.94 K/uL (1.2-3.4); MEAN CELL VOLUME 98.3 fL (80-100); MEAN CORPUSCULAR HEMOGLOBIN 33.5 pg (25-34); MEAN CORPUSCULAR HGB CONC 34.1 g/dl (32-36); MEAN PLATELET VOLUME 10.4 fL (7.4-10.4); MONO % 7.5 %; NEUT % 75.1 %; PLATELET COUNT 197 K/uL (130-400); WHITE BLOOD COUNT 6.56 K/uL (4.8-10.8)
[2017-07-11] MEDS: MoRPHine SULFATE 4 MG/ML 1 ML CARP\\VIAL IV PRN ×3 (13:49→17:47)
[2017-07-11 14:04] LABS: CALCIUM 9.1 mg/dl (8.5-10.1); CREATININE 0.67 mg/dl (0.60-1.20); POTASSIUM 3.8 mmol/L (3.5-5.1)
--- NOTE | 2017-07-11 14:28 | DIAGNOSTIC IMAGING REPORT ---
PA CHEST WITH ABDOMINAL SERIES CLINICAL HISTORY: Generalized abdominal pain. Recent surgery. FINDINGS: A PA chest radiograph is compared to study dated 11/22/2013. The cardiomediastinal silhouette is unremarkable. There is bibasilar atelectasis. The lungs and pleural spaces are otherwise clear. No pneumothorax is seen. The bony thorax is grossly intact. Supine and erect abdominal radiographs are correlated with abdominal CT dated 05/07/2017. Cholecystectomy clips are noted. There are scattered air-fluid levels seen throughout the bowel. There is no radiographic evidence of high-grade obstruction. Intraperitoneal free air is suggested below the diaphragm on the upright view. There are no abnormal abdominal calcifications. A phlebolith is seen in the right hemipelvis. The lumbosacral spine and bony pelvis appear intact. IMPRESSION: 1. No active disease in the chest. 2. Intraperitoneal free air is suspected below the diaphragm. This may be related to the reported history of recent surgery. Clinical correlation will be essential. 3. There is no radiographic evidence of bowel obstruction. Numerous air-fluid levels are noted and this may represent an enteritis or possibly a postoperative ileus. Again, clinical correlation will be required Electronically signed by: Germain Moody M.D. 07/11/2017 2:27 PM Dictated Date/Time: 07/11/2017 2:24 PM
[2017-07-11 15:46] LABS: MANUAL MICROSCOPIC REQUIRED? NO; REVIEW REQ? NO; URINE APPEARANCE CLEAR (CLEAR); URINE BILIRUBIN NEG (NEG); URINE COLOR YELLOW; URINE NITRITE NEG (NEG); URINE SPECIFIC GRAVITY 1.011 (1.000-1.030); UROBILINOGEN NEG (NEG); ZZUR CULT IF INDIC CLEAN CATCH NO
--- NOTE | 2017-07-11 16:14 | DIAGNOSTIC IMAGING REPORT ---
CT SCAN OF THE ABDOMEN AND PELVIS WITH IV CONTRAST CLINICAL HISTORY: Generalized abdominal pain. Recent cholecystectomy. Intraperitoneal free air is seen by x-ray. COMPARISON STUDY: Abdominal CT dated 05/07/2017. Abdominal radiographs dated 07/11/2017. TECHNIQUE: Following the IV administration of 117 cc of Optiray 320, CT scan of the abdomen and pelvis is performed from the lung bases to the proximal femora. Images are reviewed in the axial, sagittal, and coronal planes. IV contrast was administered without complication. A dose lowering technique was utilized adhering to the principles of ALARA. CT DOSE: 314.96 mGy.cm FINDINGS: Lung bases: The heart is normal in size and without pericardial effusion. There are trace pleural effusions and dependent atelectasis. Liver: The contrast-enhanced liver is normal in size, contour, and attenuation. There is mild intrahepatic biliary ductal dilatation. Minimal pneumobilia is also seen. The hepatic veins and portal veins are patent. Gallbladder: Surgically absent noting clips in the gallbladder fossa. There is fluid and gas identified within the gallbladder fossa. No organized collection is seen to suggest abscess. Spleen: Normal in size and attenuation. Pancreas: Unremarkable. Adrenal glands: Unremarkable. Kidneys: The contrast enhanced kidneys are normal in size and without hydronephrosis. The kidneys enhance symmetrically. A 2.1 cm exophytic cyst is again seen arising from the upper pole of left kidney. Abdominal vasculature: The abdominal aorta is normal in course and caliber. Bowel: There is significant mucosal thickening and edema identified in the right colon. Mild pericolonic infiltration is observed. There is fluid and stool seen throughout the remainder of the colon. Wall thickening and air-fluid levels are also suggested in the rectosigmoid region. The appearance suggests a nonspecific colitis. There is no bowel obstruction. The appendix is normal as visualized. Peritoneum: There is a moderate volume of intraperitoneal free air below the diaphragm. Additional foci of intraperitoneal free air scattered throughout the mid to upper abdomen. There is trace free fluid in the right upper quadrant and the right paracolic gutter. Lymphadenopathy: None. Pelvic viscera: The bladder is normal as visualized. The uterus is surgically absent. No adnexal lesion is seen. Skeletal structures: No lytic or blastic lesions are seen. IMPRESSION: 1. There is a moderate volume of intraperitoneal free air, greatest below the diaphragm. This is a nonspecific finding given the history of recent surgery and may represent an expected postoperative finding. Perforated viscus would be impossible to exclude. No obvious site of perforation is identified. 2. Findings suggest a nonspecific colitis, greatest involving the right colon. This is likely on an infectious or inflammatory basis. Clinical correlation will be required. 3. No bowel obstruction is seen. 4. The gallbladder is surgically absent. Fluid and gas are noted in the gallbladder fossa, with no organized fluid collection seen. This likely represents postoperative change. Clinical correlation will be required. Follow-up with the patient's surgeon is recommended. 5. There is mild intrahepatic biliary ductal dilatation as well as pneumobilia, likely related to recent surgery and possibly sphincterotomy. 6. Trace pleural effusions with bibasilar atelectasis. 7. Additional findings as above. Electronically signed by: Germain Moody M.D. 07/11/2017 4:12 PM Dictated Date/Time: 07/11/2017 4:02 PM
[2017-07-11] MEDS ORDERED: ONDA4TAB10 SL (18:19)
[2017-07-11] MEDS ORDERED: OXYC1TAB3 PO (18:19)
[2017-07-11 18:22] VITALS: BP 115/72; PULSE 58; O2SAT 98
[2017-07-11] MEDS ORDERED: OXYCODONE/ACETAMINOPHEN 5-325 TAB PO ONE (18:30)
[2017-07-11] MEDS ORDERED: OXYCODONE IR HOME PACK PO ONE (18:30)
== END 2017-07-11 18:47 | disposition home or self-care (01) ==
LOC: C.EDB 12:51 → C.EDC 18:47
DX: R10.11 Right upper quadrant pain (principal); J45.909 Unspecified asthma, uncomplicated; K58.9 Irritable bowel syndrome, unspecified; Z90.711 Acquired absence of uterus with remaining cervical stump; Z83.3 Family history of diabetes mellitus; Z82.49 Family history of ischemic heart disease and other diseases of the circulatory system